=== PATIENT | male | born 1975 | race Caucasian/White ===

== ENCOUNTER → 2020-04-21 14:07 | Outpatient (CLI) | payer OTHER | END | disposition home or self-care (01) | LOC: D.US 04-07 13:00 | PROVIDERS: ATTEND Nurse Practitioner Family | DX: R10.11 Right upper quadrant pain (principal) ==

== ENCOUNTER → 2020-04-28 08:52 | Outpatient (CLI) | payer OTHER | END | disposition home or self-care (01) | LOC: D.US 08:52 | PROVIDERS: ATTEND Nurse Practitioner Family | DX: R10.11 Right upper quadrant pain (principal) ==